=== PATIENT | female | born 1990 | race Caucasian/White ===

== ENCOUNTER 2018-08-09 08:22 | Inpatient (IN) | payer OTHER ==
[2018-08-09] MEDS ORDERED: Bupivacaine PF 0.5% 30 ML VIAL ONE (10:00)
[2018-08-09] MEDS ORDERED: Bupivacaine 0.25% HCL 30 ML VIAL ONE (10:00)
[2018-08-09] MEDS ORDERED: Sodium Chloride 0.9% (PF) 10 ML VIAL ONE (10:00)
[2018-08-09 22:48] VITALS: BMI 43.2
[2018-08-09] MEDS ORDERED: Butorphanol Tartrate 1 MG/ML VIAL SLOW IVP PRN (22:58)
[2018-08-09] MEDS ORDERED: Acetaminophen 500 MG TAB PO PRN (22:58)
[2018-08-09] MEDS ORDERED: Ondansetron HCl/PF 4 MG/2 ML Vial IVP PRN (22:58)
[2018-08-09] MEDS ORDERED: Promethazine HCl 25 MG/ML VIAL IM PRN (22:58)
[2018-08-10] MEDS: Lactated Ringer's 1,000 ML IV SCH ×2 (00:05→15:11)
[2018-08-10 00:20] LABS: Hemoglobin 12.8 g/dL (12.0-16.0); Mean Corpuscular Hemoglobin 31.1 pg (27.0-31.0); Mean Corpuscular Volume 91.5 fL (78.0-98.0); Mean Platelet Volume 7.5 fL (7.4-10.4); Platelet Count 283 thou/uL (130-400); RBC Distribution Width 13.4 % (11.5-14.5); Red Blood Cell (RBC) Count 4.12 mill/uL (4.20-5.40); White Blood Cell (WBC) Count 11.5 thou/uL (4.8-10.8)
[2018-08-10 01:17] LABS: HBSAg Index 0.15 S/CO (0-0.99); Hep B Surf Ag Non-Reactive S/CO (NonReactive)
[2018-08-10] MEDS ORDERED: Lidocaine 1% (PF) 30 ML VIAL SC PRN (04:00)
[2018-08-10] MEDS ORDERED: NS w/ Oxytocin 10 units 500 ML IV SCH (04:00)
[2018-08-10] MEDS ORDERED: HYDROcodone/Acetaminophen 5/325 mg Tablet PO PRN ×2 (04:00)
[2018-08-10] MEDS ORDERED: Ibuprofen 800 MG TAB PO PRN (04:00)
[2018-08-10] MEDS ORDERED: Methylergonovine 0.2 MG/ML VIAL IM PRN (04:00)
[2018-08-10] MEDS ORDERED: Carboprost 250 MCG/ML AMP IM PRN (04:00)
[2018-08-10] MEDS ORDERED: Misoprostol 200 MCG TAB RC PRN (04:00)
[2018-08-10] MEDS: NS w/ Oxytocin 10 units 500 ML IV SCH ×2 (04:07→16:38)
[2018-08-10 04:49] LABS: Syphilis Antibody Nonreactive (Nonreactive); Syphilis Antibody Index 0.05 S/CO (<1.00 Non-Reactive)
--- NOTE | 2018-08-10 12:41 | PDOC.LDPN ---
Labor & Delivery Progress Note - Subjective Subjective: comfortable - Objective Vital signs reviewed and normal: yes General: breathing through contractions Dilation: 4 Effacement: 50% Station: -2 FHT: category 1 [place] contractions every: 3 AROM: clear fluid (on admit exam) - Assessment (1) 40 weeks gestation of Code(s): Z3A.40 - 40 WEEKS GESTATION OF Current Visit: Yes Status : Acute Plan: continue plan of care, labor augmentation
[2018-08-10] MEDS ORDERED: DISCONTINUE ALL PREVIOUS NARCOTICS FS SCH (15:30)
[2018-08-10] MEDS: Bupivacaine 0.5% 20 ML, fentaNYL Citrate/PF 400 MCG in Sodium Chloride 0.9% 72 ML EPIDURAL SCH (16:56)
[2018-08-11] MEDS: Bupivacaine 0.5% 20 ML, fentaNYL Citrate/PF 400 MCG in Sodium Chloride 0.9% 72 ML EPIDURAL SCH (01:05)
[2018-08-11] MEDS: NS / Oxytocin 40 units/1000ml 1,000 ML IV SCH ×2 (03:45→05:10)
--- NOTE | 2018-08-11 04:09 | PDOC.OPDEL ---
OB Operative/Delivery Note Delivery Dr/Surgeon: Obi Pre-Delivery Diagnosis: medically indicated induction (40+ weeks) Procedure/Post Delivery Dx: spontaneous vaginal delivery Weeks gestation: 40 Anesthesia: epidural - Findings A Sex: male Weight: 8 lb - 1 min: 8 - 5 min: 9 - Additional Findings/Plan Placenta delivered: spontaneous Repaired Obstetrical Laceration: 2nd degree Estimated blood loss: 500ml EBL, QBL pending Compilations/Other Findings: uterine atony relieved w pitocin, methergine, cytotec x 1 Post delivery plan: routine recovery
[2018-08-11] MEDS ORDERED: Benzocaine/Menthol 20-0.5% 60 ML CAN TOP PRN (07:38)
[2018-08-11] MEDS ORDERED: Adacel (T-DAP) 0.5 ML VIAL IM ONE (07:38)
[2018-08-11] MEDS ORDERED: NS / Oxytocin 40 units/1000ml 1,000 ML IV SCH (07:38)
[2018-08-11] MEDS ORDERED: Lanolin Ointment 7 GM TUBE TOP PRN (07:38)
[2018-08-11] MEDS ORDERED: Acetaminophen/Codeine 30-300mg Tablet PO PRN ×2 (07:38)
[2018-08-11] MEDS ORDERED: Bisacodyl 10 MG SUPP PR PRN (07:38)
[2018-08-11] MEDS ORDERED: Milk Of Magnesia 30 ML UDCUP PO PRN (07:38)
[2018-08-11] MEDS ORDERED: Ondansetron HCl/PF 4 MG/2 ML Vial IVP PRN (07:38)
--- NOTE | 2018-08-11 08:36 | PDOC.PP ---
Post Progress Note Post Day #: 0 Subjective: doing well, normal lochia, no sx of anemia PO intake tolerated: yes Flatus: yes Ambulation: yes Vital Signs (12 hours) Temp Pulse Resp BP 08/11/18 07:20 97.8 F 94 16 112/63 08/10/18 22:15 99.0 F 91 18 Weight Weight 252 lb - Physical Examination General: NAD Respiratory: non-labored breathing Fundus firm & at: umb Skin: no rash Neurological: no gross focal deficits Psychiatric: A&Ox3, normal affect Result Diagrams: 08/10/18 00:12 Additional Labs: Post Labs Blood Type A POSITIVE 08/10/18 00:12 Hep Bs Antigen Non-Reactive S/CO (NonReactive) 08/10/18 00:12 (1) 40 weeks gestation of Code(s): Z3A.40 - 40 WEEKS GESTATION OF Status: Acute (2) Vaginal delivery Code(s): O80 - ENCOUNTER FOR FULL-TERM UNCOMPLICATED DELIVERY Status: Acute - Assessment/Plan PPD0 sp , IOL @ 40.6. Doing well.
[2018-08-11] MEDS: Ferrous Sulfate 325 MG TAB PO SCH ×2 (09:29→16:25)
[2018-08-11] MEDS: Prenatal Vitamin 1 TAB PO SCH (09:34)
[2018-08-11] MEDS: Ibuprofen 800 MG TAB PO SCH ×2 (09:34→15:51)
[2018-08-11] MEDS: Docusate Calcium (SURFAK) 240 MG CAP PO SCH ×2 (09:34→21:35)
[2018-08-11] MEDS: Lactated Ringer's 1,000 ML IV SCH (19:27)
[2018-08-12] MEDS: Ibuprofen 800 MG TAB PO SCH ×3 (00:36→17:19)
[2018-08-12 05:07] LABS: Hemoglobin 10.6 g/dL (12.0-16.0); Mean Corpuscular HGB CONC 34.2 g/dL (32.0-36.0); Mean Corpuscular Hemoglobin 31.8 pg (27.0-31.0); Mean Corpuscular Volume 92.8 fL (78.0-98.0); Mean Platelet Volume 7.5 fL (7.4-10.4); Platelet Count 278 thou/uL (130-400); RBC Distribution Width 13.4 % (11.5-14.5); Red Blood Cell (RBC) Count 3.35 mill/uL (4.20-5.40); White Blood Cell (WBC) Count 11.8 thou/uL (4.8-10.8)
[2018-08-12] MEDS: Ferrous Sulfate 325 MG TAB PO SCH ×2 (07:46→17:19)
[2018-08-12 07:49] VITALS: BP 109/58; TEMP 98.1
--- NOTE | 2018-08-12 07:53 | PDOC.PP ---
Post Progress Note Post Day #: 1 PO intake tolerated: yes Flatus: yes Ambulation: yes Vital Signs (12 hours) Temp Pulse Resp BP 08/12/18 07:49 98.1 F 79 20 109/58 L 08/12/18 00:38 83 20 118/79 08/11/18 20:00 97.5 F L 85 20 112/71 Weight Weight 252 lb - Physical Examination General: NAD Cardiovascular: RRR Respiratory: non-labored breathing Abdominal: no distention, appropriately TTP Fundus firm & at: umb Skin: no rash Psychiatric: normal affect Result Diagrams: 08/12/18 04:38 Additional Labs: Post Labs Blood Type A POSITIVE 08/10/18 00:12 Hep Bs Antigen Non-Reactive S/CO (NonReactive) 08/10/18 00:12 - Assessment/Plan PPD1 s/p TSVD VSSAF Doing well lochia appropriate PPH ebl 995cc, hgb 12.8-->10.6, no sx anemia, cont PNV on DC Rh pos RImm DC home FU 6 wk
[2018-08-12] MEDS: Docusate Calcium (SURFAK) 240 MG CAP PO SCH (08:15)
[2018-08-12] MEDS: Prenatal Vitamin 1 TAB PO SCH (08:15)
== END 2018-08-12 17:50 | disposition home or self-care (01) | DRG 775 ==
LOC: L&D 21:56 → 3SW 08-11 07:36
PROVIDERS: ADMIT Obstetrics & Gynecology; ATTEND Obstetrics & Gynecology
PROC: 10E0XZZ Delivery of Products of Conception, External Approach (ICD-10-PCS; principal; 2018-08-11)
PROC: 0KQM0ZZ Repair Perineum Muscle, Open Approach (ICD-10-PCS; 2018-08-11)
PROC: 3E033VJ Introduction of Other Hormone into Peripheral Vein, Percutaneous Approach (ICD-10-PCS; 2018-08-11)
PROC: 10907ZC Drainage of Amniotic Fluid, Therapeutic from Products of Conception, Via Natural or Artificial Opening (ICD-10-PCS; 2018-08-11)
PROC: 3E0P7VZ Introduction of Hormone into Female Reproductive, Via Natural or Artificial Opening (ICD-10-PCS; 2018-08-11)
DX: O70.1 Second degree perineal laceration during delivery (principal); Z37.0 Single live birth; O99.334 Smoking (tobacco) complicating childbirth; Z3A.40 40 weeks gestation of pregnancy; O62.2 Other uterine inertia
CPT/HCPCS: 36415; 51702; 85027; 86780; 86850; 86900; 86901; 87340; J2210; J3010; J3490; J7050; S0020

== ENCOUNTER 2019-08-18 00:11 | Emergency (ER) | payer OTHER ==
--- NOTE | 2019-08-18 07:23 | RAD ---
LEFT KNEE 4 VIEWS: Date: 08/18/19 INDICATION: History of fall with left knee pain. COMPARISON: None. FINDINGS: No acute fracture or subluxation is evident. No joint capsular distention is noted. IMPRESSION: No acute osseous abnormality. POS: BH
== END 2019-08-18 01:25 | disposition home or self-care (01) ==
LOC: SCSER 00:11
DX: S80.02XA Contusion of left knee, initial encounter (principal); F17.210 Nicotine dependence, cigarettes, uncomplicated; W01.0XXA Fall on same level from slipping, tripping and stumbling without subsequent striking against object, initial encounter